=== PATIENT | female | born 1995 | race Caucasian/White ===

== ENCOUNTER 2017-02-02 01:13 | Emergency (ER) | payer MEDICAID ==
[~2017-02-02] VITALS: Ht 160 cm; Wt 72.0 kg
[2017-02-02 03:30] VITALS: BP 76/63
== END 2017-02-02 04:45 | disposition home or self-care (01) ==
LOC: ER 02:11
DX: L03.112 Cellulitis of left axilla (principal); L03.111 Cellulitis of right axilla; F17.210 Nicotine dependence, cigarettes, uncomplicated; F12.10 Cannabis abuse, uncomplicated
CPT/HCPCS: 99283